=== PATIENT | male | born 1960 | race Caucasian/White ===

== ENCOUNTER 2020-11-18 03:47 | Emergency (ER) | payer BC, OTHER ==
[2020-11-18] MEDS ORDERED: Aspirin 81 MG Tab.Chew PO ONE (04:01)
[2020-11-18 04:28] LABS: BLOOD UREA NITROGEN,BUN 26 mg/dL (7.0-18.0); CARBON DIOXIDE,CO2 27.1 mmol/L (21.0-32.0); CHLORIDE,CL 101 mmol/L (98-107); GLUCOSE RANDOM 154 mg/dL (74-106); POTASSIUM,K 4.3 mmol/L (3.5-5.1); SODIUM,NA 138 mmol/L (136-148)
--- NOTE | 2020-11-18 04:31 | CR ---
HISTORY: Chest pain COMPARISON: None available FINDINGS: A portable erect AP view of the chest was obtained at 0405 hours. The lungs are clear. No focal or diffuse infiltrates are present. The heart is normal in size. The mediastinum is normal in appearance. The osseous structures are normal in appearance for the patient`s age. IMPRESSION: Normal portable chest single view. Dictated by Bubba Wharton MD @ Nov 18 2020 4:29AM Signed by Dr. Bubba Wharton @ Nov 18 2020 4:29AM
[2020-11-18] MEDS ORDERED: Heparin Sodium 5,000 Units/ML Vial IVPUSH ONE (04:34)
[2020-11-18 04:39] VITALS: PULSE 64
[2020-11-18] MEDS ORDERED: Heparin Sodium/0.45% NaCl 500 ML ONE (04:43)
[2020-11-18] MEDS ORDERED: Heparin Sodium/0.45% NaCl 500 ML IV SCH (04:45)
--- NOTE | 2020-11-18 04:52 | EDM.PDOC ---
ED HPI GENERAL MEDICAL PROBLEM - General Chief Complaint: Chest Pain Stated Complaint: CHEST PAIN Time Seen by Provider: 11/18/20 03:51 - History of Present Illness INITIAL COMMENTS - FREE TEXT/NARRATIVE: CHIEF COMPLAINT(S): "Something is wrong with my chest." HISTORY OF PRESENT ILLNESS: This is a 60-year-old man with a past medical history of TIA, hypertension, diabetes mellitus who comes to the emergency department with a chief complaint of "something is wrong in my chest." The patient states that for the last couple of days he has been experiencing chest tightness on the left side of his chest and pain in his left arm. He states that he just cannot get comfortable. He denies any overt chest pain just chest pressure. He states that he does not feel short of breath does not have a cough does not have a fever denied any diaphoresis, nausea or vomiting. He denies any history of CAD or CHF he denies any recent travel, recent surgery, prior history of DVT or PE. He denies any abdominal pain, reflux symptoms. REVIEW OF SYSTEMS: Constitutional: Denies fever, chills. Eyes: Denies eye pain Ears, Nose, Mouth, & Throat: Denies earache Cardiovascular: Positive for left sided chest pressure Respiratory: Denies shortness of breath Gastrointestinal: Denies Nausea, vomiting, diarrhea, hematochezia. Genitourinary: Denies hematuria Skin:Denies a rash MSK: Positive for pain in left arm Neurological: Denies blurred vision, numbness, tingling, weakness Psychiatric: Denies depression PAST MEDICAL HISTORY: As per history of present illness and as reviewed below otherwise noncontributory. SURGICAL HISTORY: As per history of present illness and as reviewed below otherwise noncontributory. SOCIAL HISTORY: As per history of present illness and as reviewed below otherwise noncontributory. FAMILY HISTORY: As per history of present illness and as reviewed below otherwise noncontributory. EXAMINATION OF ORGAN SYSTEMS/BODY AREAS: Constitutional: Blood pressure was 139/84, heart rate 66, respiratory rate 18 with an oxygen saturation of 95% on room air. Temperature 36.6 General: Middle-aged man who does not appear to be in acute distress. Psychiatric: Appropriate mood and affect. Eyes: No scleral icterus or conjunctival erythema ENMT: Moist mucous membranes. No pharyngeal erythema Cardiovascular: Regular, rate, and rhythm. No gallops, murmurs, or rubs. Bilateral upper extremity pulses symmetric and intact. No peripheral edema. No JVD. Respiratory: Lungs clear to auscultation bilaterally. No wheezes, rales, or rhonchi. Gastrointestinal: Soft, non-tender, non-distended. Normoactive bowel sounds Genitourinary: No suprapubic tenderness Musculoskeletal: Normal range of motion. Skin: No lesions or abrasions. Neurological: Alert, GCS 15 MEDICAL DECISION MAKING AND COURSE IN THE ED WITH INTERPRETATION/REVIEW OF DIAGNOSTIC STUDIES: This is a 60-year-old man with a past medical history of hypertension, diabetes mellitus and prior history of TIA who comes to the emergency department with acute typical chest pain concerning for ACS. EKG was obtained which did not reveal any acute STEMI. At this time we did place the patient on cardiac monitoring and pulse oximetry. The patient had already received 324 mg of aspirin by mouth prior to arrival. Will obtain a cardiac work-up. Wells Criteria Clinical signs/symptoms of DVT: No (0) PE #1 Dx or equally likely: No (0) Heart Rate >100: No (0) Immobilization for 3 days or surgery in last month: No (0) Previously Dx PE or DVT: No (0) Hemoptysis: No (0) Malignancy w/ Tx within 6 months or palliative: No (0) Wells Score: 0 Heart Score History: Highly Suspicious (2) ECG: Non-specific repolarization (1) Age: 45-64 (1) Risk Factors:>/= 3 (2) Initial Troponin:>2x nml (2) Total Score: 8 Laboratory: CBC is unremarkable. Coags are within normal limits. BMP is unremarkable. Troponin is positive at 0.943. Magnesium is normal. Time: 345 Twelve-lead EKG interpreted by myself. Normal sinus rhythm at a rate of 63beats per minute. Left axis. IL interval is 206 ms. QRS duration is [address] segments are normal without elevations or depressions. There is a T wave inversion in lead I and aVL Q-wave in lead III and V2. Hypertrophy not noted. No prior EKGs. Interpretation: Normal sinus rhythm with nonspecific T wave inversions The radiological images were viewed by myself along with reading the report from the radiologist. Chest x-ray does not reveal any acute cardiopulmonary process. Time: 428 Twelve-lead EKG interpreted by myself. Normal sinus rhythm at a rate of 61beats per minute. Normal axis. IL interval is 205ms. QRS duration is 108ms. ST segments are normal without elevations or depressions. T wave inversion in lead I and aVL Q-wave in lead III and V2. Hypertrophy not noted. No changes demons trated from prior EKG dated today. Interpretation: Sinus rhythm with nonspecific T wave inversion After labs and imaging and given the patient's duration of symptoms and risk factors I do believe the patient is experiencing a non-ST elevation RI. At this time we will start the patient on heparin with a 4000 unit IV heparin bolus. I did discuss results with the patient and that I would like to transfer him for further cardiological work-up. He was amenable to this plan. I contacted [facility] in [place] and spoke with Dr. Zepeda who accepted the patient's transfer. The patient will be transferred via ALS ambulance. Covid was negative DISPOSITION: The patient was transferred to [facility] in [place] in stable condition CONDITION: Serious PROCEDURES: Cardiac monitoring interpretation, pulse oximetry interpretation FINAL IMPRESSION(S)/DIAGNOSES: 1. Acute non-ST elevation RI Critical Care Procedure Note Authorized and performed by: Mohamud Treviño M.D. Critical Care Time: 55 minutes Due to a high probability of clinically significant, life threatening deterioration, the patient required my highest level of preparedness to intervene emergently and I personally spent this critical care time directly and personally managing the patient. This critical care time included obtaining a history, examining the patient, pulse oximetry; ordering and review of studies; arranging urgent treatment with development of a management plan; evaluation of a patients reponse to treatment; frequent assessment; and discussions with other providers. This critical care time was performed to assess and manage the high probability of imminent, life threatening deterioration that could result in multiorgan failure. It was exclusive of separate billable procedures and treating other patients. Please see MDM section and rest of the note for further information on patient assessment and treatment. Please see APOORVA section and rest of the note for further information on patient assessment and treatment. Mohamud Treviño M.D. - Related Data Allergies Allergy/AdvReac Type Severity Reaction Status Date / Time No Known Allergies Allergy Verified 11/18/20 03:58 Home Meds: Home Meds metFORMIN [Glucophage] 1,000 mg PO DAILY 04/02/15 [History] Non-Formulary Medication [NF Drug] 1 cap PO DAILY 11/18/20 [History] Olmesartan/Hydrochlorothiazide [Benicar HCT 40-12.5 MG] 1 tab PO DAILY 11/18/20 [History] Past Medical History Cardiovascular History: Reports: High Cholesterol Endocrine/Metabolic History: Reports: Diabetes, Type II - Infectious Disease History Infectious Disease History: Reports: Rubella - Past Surgical History HEENT Surgical History: Reports: Tonsillectomy Social & Family History - Family History Family Medical History: No Pertinent Family History - Caffeine Use Caffeine Use: Reports: Coffee - Recreational Drug Use Recreational Drug Use: No ED ROS GENERAL - Review of Systems Review Of Systems: See Below ED EXAM, GENERAL - Physical Exam Exam: See Below Course - Vital Signs Last Recorded V/S: Last Vital Signs Temp 36.6 C 11/18/20 05:03 Pulse 64 11/18/20 05:03 Resp 18 11/18/20 05:03 BP 130/82 11/18/20 05:03 Pulse Ox 97 11/18/20 05:03 - Orders/Labs/Meds Orders: Active Orders 24 hr Category Date Time Status Cardiac Monitoring [RC] . DIRECTED Care 11/18/20 04:55 Active EKG Documentation Completion [RC] STAT Care 11/18/20 04:01 Active Pulse Oximetry [RC] ASDIRECTED Care 11/18/20 04:55 Active PTT,PARTIAL THROMBOPLSTIN TIME [COAG] Q6H Lab 11/18/20 10:45 Ordered PTT,PARTIAL THROMBOPLSTIN TIME [COAG] Q6H Lab 11/18/20 16:45 Ordered PTT,PARTIAL THROMBOPLSTIN TIME [COAG] Q6H Lab 11/18/20 22:45 Ordered PTT,PARTIAL THROMBOPLSTIN TIME [COAG] Q6H Lab 11/19/20 04:45 Ordered PTT,PARTIAL THROMBOPLSTIN TIME [COAG] Q6H Lab 11/19/20 10:45 Ordered PTT,PARTIAL THROMBOPLSTIN TIME [COAG] Q6H Lab 11/19/20 16:45 Ordered Heparin Sodium/0.45% NaCl [Heparin 25,000 Units in 1/2 Med 11/18/20 04:45 Active NS 500 ML] 500 ml IV TITRATE Sodium Chloride 0.9% [Normal Saline] 1,000 ml Med 11/18/20 05:00 Active IV ASDIRECTED Medication Orders Heparin Sodium/Sodium Chloride (Heparin 25,000 Units In 1/2 Ns 500 Ml) 500 mls @ 27.216 mls/hr IV TITRATE JOHNY; Protocol Last Admin: 11/18/20 04:47 Dose: 12 units/kg/hr, 27.216 mls/hr Documented by: JOSH Cosigned by: AGUSTIN Sodium Chloride (Normal Saline) 1,000 mls @ 150 mls/hr IV ASDIRECTED JOHNY Last Admin: 11/18/20 05:07 Dose: 150 mls/hr Documented by: JOSH Labs: Laboratory Tests 11/18/20 11/18/20 11/18/20 Range/Units 03:55 03:55 03:55 WBC 7.75 (4.0-11.0) K/uL RBC 4.43 L (4.50-5.90) M/uL Hgb 14.1 (13.0-17.0) g/dL Hct 41.2 (38.0-50.0) % MCV 93.0 (80.0-98.0) fL MCH 31.8 (27.0-32.0) pg MCHC 34.2 (31.0-37.0) g/dL RDW Std Deviation 42.0 (28.0-62.0) fl RDW Coeff of Rebecca 12 (11.0-15.0) % Plt Count 248 (150-400) K/uL MPV 9.70 (7.40-12.00) fL Neut % (Auto) 52.4 (48.0-80.0) % Lymph % (Auto) 37.2 (16.0-40.0) % Hitchcock % (Auto) 7.1 (0.0-15.0) % Eos % (Auto) 2.8 (0.0-7.0) % Baso % (Auto) 0.5 (0.0-1.5) % Neut # (Auto) 4.1 (1.4-5.7) K/uL Lymph # (Auto) 2.9 H (0.6-2.4) K/uL Hitchcock # (Auto) 0.6 (0.0-0.8) K/uL Eos # (Auto) 0.2 (0.0-0.7) K/uL Baso # (Auto) 0.0 (0.0-0.1) K/uL Nucleated RBC % 0.0 /100WBC Nucleated RBCs # 0 K/uL INR 1.04 APTT (18.6-31.3) SEC Sodium 138 (136-148) mmol/L Potassium 4.3 (3.5-5.1) mmol/L Chloride 101 (98-107) mmol/L Carbon Dioxide 27.1 (21.0-32.0) mmol/L BUN 26 H (7.0-18.0) mg/dL Creatinine 1.1 (0.8-1.3) mg/dL Est Cr Clr Drug Dosing 79.36 mL/min Estimated GFR (MDRD) > 60.0 ml/min Glucose 154 H (74-106) mg/dL Calcium 9.4 (8.5-10.1) mg/dL Magnesium 1.9 (1.8-2.4) mg/dL Troponin I 0.943 H* (0.000-0.056) ng/mL SARS-CoV-2 RNA (RADHA) (NEGATIVE) 11/18/20 11/18/20 Range/Units 03:55 05:00 WBC (4.0-11.0) K/uL RBC (4.50-5.90) M/uL Hgb (13.0-17.0) g/dL Hct (38.0-50.0) % MCV (80.0-98.0) fL MCH (27.0-32.0) pg MCHC (31.0-37.0) g/dL RDW Std Deviation (28.0-62.0) fl RDW Coeff of Rebecca (11.0-15.0) % Plt Count (150-400) K/uL MPV (7.40-12.00) fL Neut % (Auto) (48.0-80.0) % Lymph % (Auto) (16.0-40.0) % Hitchcock % (Auto) (0.0-15.0) % Eos % (Auto) (0.0-7.0) % Baso % (Auto) (0.0-1.5) % Neut # (Auto) (1.4-5.7) K/uL Lymph # (Auto) (0.6-2.4) K/uL Hitchcock # (Auto) (0.0-0.8) K/uL Eos # (Auto) (0.0-0.7) K/uL Baso # (Auto) (0.0-0.1) K/uL Nucleated RBC % /100WBC Nucleated RBCs # K/uL INR APTT 26.8 (18.6-31.3) SEC Sodium (136-148) mmol/L Potassium (3.5-5.1) mmol/L Chloride (98-107) mmol/L Carbon Dioxide (21.0-32.0) mmol/L BUN (7.0-18.0) mg/dL Creatinine (0.8-1.3) mg/dL Est Cr Clr Drug Dosing mL/min Estimated GFR (MDRD) ml/min Glucose (74-106) mg/dL Calcium (8.5-10.1) mg/dL Magnesium (1.8-2.4) mg/dL Troponin I (0.000-0.056) ng/mL SARS-CoV-2 RNA (RADHA) NEGATIVE (NEGATIVE) Meds: Medications Generic Name Dose Route Start Last Admin Trade Name Freq PRN Reason Stop Dose Admin Heparin Sodium/Sodium Chloride 500 mls @ 27.216 mls/hr 11/18/20 04:45 11/18/20 04:47 Heparin 25,000 Units In 1/2 Ns 500 Ml IV 12 units/kg/hr TITRATE JOHNY 27.216 mls/hr Administration Protocol 12 UNITS/KG/HR Sodium Chloride 1,000 mls @ 150 mls/hr 11/18/20 05:00 11/18/20 05:07 Normal Saline IV 150 mls/hr ASDIRECTED JOHNY Administration Discontinued Medications Generic Name Dose Route Start Last Admin Trade Name Freq PRN Reason Stop Dose Admin Aspirin 324 mg 11/18/20 04:01 11/18/20 04:09 Aspirin PO 11/18/20 04:02 Not Given ONETIME ONE Heparin Sodium (Porcine) 4,000 units 11/18/20 04:34 11/18/20 04:45 Heparin Sodium IVPUSH 11/18/20 04:35 4,000 units ONETIME ONE Administration Heparin Sodium/Sodium Chloride Confirm 11/18/20 04:43 11/18/20 05:04 Heparin 25,000 Units In 1/2 Ns 500 Ml Administered 11/18/20 04:44 Not Given Dose 500 mls @ as directed .ROUTE .STK-MED ONE Departure - Departure Time of Disposition: 06:45 Disposition: DC/Tfer to Acute Hospital 02 Condition: Serious Clinical Impression: NSTEMI (non-ST elevated myocardial infarction) - Discharge Information *PRESCRIPTION DRUG MONITORING PROGRAM REVIEWED*: No *COPY OF PRESCRIPTION DRUG MONITORING REPORT IN PATIENT ALEX: No Referrals: Sawyer Null MD [Primary Care Provider] - Forms: ED Department Discharge Sepsis Event Note (ED) - Evaluation Sepsis Screening Result: No Definite Risk - Focused Exam Vital Signs: Vital Signs Temp Pulse Resp BP Pulse Ox 11/18/20 05:03 36.6 C 64 18 130/82 97 11/18/20 04:30 64 18 128/77 96 11/18/20 04:00 36.6 C 66 18 139/84 95 - My Orders Last 24 Hours: My Active Orders 11/18/20 04:01 EKG Documentation Completion [RC] STAT 11/18/20 04:45 Heparin Sodium/0.45% NaCl [Heparin 25,000 Units in 1/2 NS 500 ML] 500 ml IV TITRATE 11/18/20 04:55 Cardiac Monitoring [RC] . DIRECTED Pulse Oximetry [RC] ASDIRECTED 11/18/20 05:00 Sodium Chloride 0.9% [Normal Saline] 1,000 ml IV ASDIRECTED 11/18/20 10:45 PTT,PARTIAL THROMBOPLSTIN TIME [COAG] Q6H 11/18/20 16:45 PTT,PARTIAL THROMBOPLSTIN TIME [COAG] Q6H 11/18/20 22:45 PTT,PARTIAL THROMBOPLSTIN TIME [COAG] Q6H 11/19/20 04:45 PTT,PARTIAL THROMBOPLSTIN TIME [COAG] Q6H 11/19/20 10:45 PTT,PARTIAL THROMBOPLSTIN TIME [COAG] Q6H 11/19/20 16:45 PTT,PARTIAL THROMBOPLSTIN TIME [COAG] Q6H - Assessment/Plan Last 24 Hours: My Active Orders 11/18/20 04:01 EKG Documentation Completion [RC] STAT 11/18/20 04:45 Heparin Sodium/0.45% NaCl [Heparin 25,000 Units in 1/2 NS 500 ML] 500 ml IV TITRATE 11/18/20 04:55 Cardiac Monitoring [RC] . DIRECTED Pulse Oximetry [RC] ASDIRECTED 11/18/20 05:00 Sodium Chloride 0.9% [Normal Saline] 1,000 ml IV ASDIRECTED 11/18/20 10:45 PTT,PARTIAL THROMBOPLSTIN TIME [COAG] Q6H 11/18/20 16:45 PTT,PARTIAL THROMBOPLSTIN TIME [COAG] Q6H 11/18/20 22:45 PTT,PARTIAL THROMBOPLSTIN TIME [COAG] Q6H 11/19/20 04:45 PTT,PARTIAL THROMBOPLSTIN TIME [COAG] Q6H 11/19/20 10:45 PTT,PARTIAL THROMBOPLSTIN TIME [COAG] Q6H 11/19/20 16:45 PTT,PARTIAL THROMBOPLSTIN TIME [COAG] Q6H
[2020-11-18] MEDS ORDERED: Sodium Chloride 0.9% 1,000 ML IV SCH (05:00)
[2020-11-18 05:04] VITALS: BP 130/82
== END 2020-11-18 05:50 ==
LOC: MW.ED 03:47
DX: I21.4 Non-ST elevation (NSTEMI) myocardial infarction (principal); E11.9 Type 2 diabetes mellitus without complications; I10 Essential (primary) hypertension; Z79.84 Long term (current) use of oral hypoglycemic drugs; Z20.822 Contact with and (suspected) exposure to COVID-19
CPT/HCPCS: 36415; 71045; 80048; 83735; 84484; 85025; 85610; 85730; 87635; 93005; 96365; 99291; J1644; J7030; 93010; U0002

== ENCOUNTER 2021-11-04 14:58 | Emergency (ER) | payer OTHER, BC ==
[2021-11-04 15:10] VITALS: BP 160/97; PULSE 75
[2021-11-04] MEDS ORDERED: Ondansetron 4 MG/2 ML SDV IVPUSH ONE (15:10)
[2021-11-04] MEDS ORDERED: fentaNYL 50 MCG/ML SDV IVPUSH ONE (15:10)
[2021-11-04 15:42] LABS: CARBON DIOXIDE,CO2 27.2 mmol/L (21.0-32.0); POTASSIUM,K 4.3 mmol/L (3.5-5.1)
== END 2021-11-04 15:55 | disposition home or self-care (01) ==
LOC: MW.ED 14:58
DX: S82.001A Unspecified fracture of right patella, initial encounter for closed fracture (principal); E78.00 Pure hypercholesterolemia, unspecified; I10 Essential (primary) hypertension; E11.9 Type 2 diabetes mellitus without complications; Z86.73 Personal history of transient ischemic attack (TIA), and cerebral infarction without residual deficits; Z79.84 Long term (current) use of oral hypoglycemic drugs; W00.0XXA Fall on same level due to ice and snow, initial encounter
CPT/HCPCS: 36415; 73562; 80053; 85025; 85610; 96374; 96375; 99284; J2405; J3010

== ENCOUNTER 2021-11-12 12:18 | Day surgery (SDC) | payer OTHER, BC ==
[~2021-11-12 12:18] MED LIST: Lactated Ringers 1,000 ML IV SCH; Tranexamic Acid 2,000 MG in Sodium Chloride 0.9% 100 ML IV ONE; ceFAZolin 2 GM in Premix Bag 1 BAG IV SCH
[2021-11-12] MEDS ORDERED: Bupivacaine 0.25%/EPINEPHrine 1:200,000 10 ML SDV ONE ×2 (12:19→14:24)
[2021-11-12] MEDS ORDERED: fentaNYL 100 MCG/2 ML SDV IVPUSH PRN (13:00)
[2021-11-12] MEDS ORDERED: Albuterol 0.083% 2.5 MG/3 ML Neb Soln NEB PRN (13:00)
[2021-11-12] MEDS ORDERED: Metoclopramide 10 MG/2 ML SDV IVPUSH PRN (13:00)
[2021-11-12] MEDS ORDERED: HYDROmorphone 1 MG/ML Syringe IVPUSH PRN (13:00)
[2021-11-12] MEDS ORDERED: Ondansetron 4 MG/2 ML SDV IVPUSH PRN (13:00)
[2021-11-12] MEDS ORDERED: Naloxone 0.4 MG/ML SDV IVPUSH PRN (13:00)
[2021-11-12] MEDS ORDERED: fentaNYL 250 MCG/5 ML SDV ONE (14:16)
[2021-11-12] MEDS ORDERED: Propofol 200 MG/20 ML SDV ONE ×2 (14:19→14:32)
[2021-11-12] MEDS ORDERED: Bupivacaine 0.25% 10 ML SDV ONE (14:24)
[2021-11-12] MEDS ORDERED: Ketamine HCL/NACL, ISO-OSM 50 MG/5 ML Syringe ONE ×2 (15:02→15:58)
[2021-11-12] MEDS ORDERED: fentaNYL 100 MCG/2 ML SDV ONE ×2 (15:10→15:14)
[2021-11-12] MEDS ORDERED: HYDROmorphone 2 MG/ML Syringe ONE ×2 (15:35→15:58)
[2021-11-12] MEDS ORDERED: Octyl 2-Cyanoacrylate 1 Tube ONE (16:21)
[2021-11-12 18:11] VITALS: PULSE 67
[2021-11-12 18:12] VITALS: BP 159/72
== END 2021-11-12 18:45 | disposition home or self-care (01) ==
LOC: MW.SDS 12:18
PROVIDERS: ATTEND Orthopaedic Surgery
DX: S82.001A Unspecified fracture of right patella, initial encounter for closed fracture (principal); F17.290 Nicotine dependence, other tobacco product, uncomplicated; E11.9 Type 2 diabetes mellitus without complications; E78.00 Pure hypercholesterolemia, unspecified; I10 Essential (primary) hypertension; I25.2 Old myocardial infarction; E66.9 Obesity, unspecified; Z68.32 Body mass index [BMI] 32.0-32.9, adult; Z95.5 Presence of coronary angioplasty implant and graft; Z98.890 Other specified postprocedural states; Z90.89 Acquired absence of other organs; Z79.82 Long term (current) use of aspirin; Z79.02 Long term (current) use of antithrombotics/antiplatelets; Z79.899 Other long term (current) drug therapy; Z79.84 Long term (current) use of oral hypoglycemic drugs; Z86.73 Personal history of transient ischemic attack (TIA), and cerebral infarction without residual deficits; X58.XXXA Exposure to other specified factors, initial encounter
CPT/HCPCS: 27524; 82947; A9270; J0131; J0690; J1170; J2704; J3010; J3490; J7120; 01392